=== PATIENT | male | born 1970 | race African-American/Black ===

== ENCOUNTER 2018-05-03 10:40 | Inpatient (IN) ==
[2018-05-03] MEDS ORDERED: DEXAMETHASONE 4 MG/1 ML VIAL IM STA (11:55)
[2018-05-03] MEDS ORDERED: ALBUTEROL/IPRATROPIUM 3 ML NEB RESP TX STA ×2 (11:55→13:11)
[2018-05-03 12:19] LABS: Basophils # 0.1 10*3/uL (0.0-0.2); Basophils % 0.5 % (0.0-0.8); Eosinophils # 0.2 10*3/uL (0.0-0.87); Eosinophils % 1.8 % (0.00-10.9); Hematocrit 41.7 VOL% (42.0-52.0); Hemoglobin 13.2 GM/DL (14.0-18.0); Immature Granulocytes % 0.6 %; Immature Granulocytes Absolute 0.06 #; Lymphocytes # 2.5 10*3/uL (1.4-4.0); Mean Corpuscular HGB Conc 31.7 GM/DL (32-36); Mean Corpuscular Hemoglobin 28 PG (27-34); Mean Corpuscular Volume 89.1 FL (87-102); Mean Platelet Volume 8.6 FL (9.6-12.0); Monocytes # 0.8 10*3/uL (0.11-0.8); Monocytes % 8.3 % (1.7-12.7); Neutrophils % 62.8 % (38.7-73.9); Platelet Count 433 T/CUMM (130-400); Red Blood Count 4.68 MC/CUMM (3.8-5.5); Red Cell Distribution Width 13.5 % (9.3-17.3); White Blood Count 9.5 T/CUMM (4-12)
[2018-05-03 12:27] LABS: PT Patient Result 10.7 SECS
[2018-05-03] MEDS ORDERED: DEXAMETHASONE 10 MG/1 ML VIAL ONE (12:33)
[2018-05-03 12:37] LABS: Alanine Aminotransferase 44 U/L (16-61); Albumin 3.8 G/DL (3.4-5.0); Alkaline Phosphatase 81 U/L (45-117); Aspartate Amino Transferase 30 U/L (0-37); Bilirubin,Total < 0.39 MG/DL (0.2-1.0); Blood Urea Nitrogen 15 MG/DL (7-18); Calcium 9.5 MG/DL (8.5-10.1); Glucose 125 MG/DL (74-106); Osmolality,Calculated 276.7 MOS/KG (273-304); Potassium 4.4 MMOL/L (3.5-5.1); Sodium 138 MMOL/L (136-145); Total Protein 7.7 G/DL (6.4-8.3)
[2018-05-03] MEDS ORDERED: ONDANSETRON 4 MG/2 ML VIAL IV PRN (13:31)
[2018-05-03] MEDS ORDERED: ACETAMINOPHEN 325 MG TABLET PO PRN (13:31)
[2018-05-03] MEDS ORDERED: PROMETHAZINE 25 MG/1 ML VIAL IM PRN (13:31)
[2018-05-03] MEDS ORDERED: methylPREDNISolone SOD SUC 125 MG/2 ML VIAL IV STA (13:33)
[2018-05-03] MEDS ORDERED: cefTRIAXone 1,000 MG in SYRINGE 1 EACH IV STA (13:34)
[2018-05-03] MEDS ORDERED: AZITHROMYCIN INJ 500 MG in SODIUM CHLORIDE 0.9% 250 ML IV ONE ×2 (13:35→16:00)
[2018-05-03] MEDS ORDERED: KETOROLAC 30 MG/1 ML VIAL IV STA (13:39)
[2018-05-03] MEDS ORDERED: ENOXAPARIN 40 MG/0.4 ML SYRINGE SUBCUT SCH (14:00)
[2018-05-03] MEDS ORDERED: PANTOPRAZOLE 40 MG TABLET PO SCH (14:00)
[2018-05-03] MEDS ORDERED: methylPREDNISolone SOD SUC 40 MG/1 ML VIAL IV SCH (14:00)
[2018-05-03] MEDS ORDERED: cefTRIAXone 1,000 MG in SYRINGE 1 EACH IV SCH (14:00)
[2018-05-03 14:24] LABS: Thyroid Stimulating Hormone 1.56 uIU/ml (0.358-3.74)
[2018-05-03] MEDS ORDERED: methylPREDNISolone SOD SUC 125 MG/2 ML VIAL ONE (14:28)
[2018-05-03] MEDS ORDERED: cefTRIAXone 1,000 MG VIAL ONE (14:28)
[2018-05-03] MEDS ORDERED: DEXTROSE 50% 25 GM/50 ML VIAL IV PRN (15:28)
[2018-05-03] MEDS ORDERED: GLUCAGON 1 MG VIAL IM PRN (15:28)
[2018-05-03] MEDS ORDERED: AZITHROMYCIN INJ 500 MG in SODIUM CHLORIDE 0.9% 250 ML IV SCH (16:00)
[2018-05-03] MEDS: ENOXAPARIN 40 MG/0.4 ML SYRINGE SUBCUT SCH (16:09)
[2018-05-03] MEDS: PANTOPRAZOLE 40 MG TABLET PO SCH (16:10)
[2018-05-03] MEDS ORDERED: METOPROLOL TARTRATE 5 MG/5 ML VIAL IV ONE (16:10)
[2018-05-03] MEDS ORDERED: hydrALAZINE 20 MG/1 ML VIAL IV PRN (16:11)
[2018-05-03] MEDS: INSULIN LISPRO 100 UNIT/ML SUBCUT SCH ×2 (16:11→22:27)
[2018-05-03] MEDS ORDERED: NITROGLYCERIN SL 0.4 MG TABLET SL PRN (16:12)
[2018-05-03] MEDS: ASPIRIN EC 81 MG TABLET PO SCH (16:35)
[2018-05-03] MEDS: ALBUTEROL/IPRATROPIUM 3 ML NEB RESP TX SCH (19:37)
[2018-05-03 20:59] LABS: CKMB % 1.3 %; Troponin I 0.023 NG/ML (0.00-0.045)
[2018-05-03] MEDS: METOPROLOL TARTRATE 25 MG TABLET PO SCH (22:27)
[2018-05-03] MEDS: sitaGLIPtin 25 MG TABLET PO SCH (22:27)
[2018-05-03] MEDS: methylPREDNISolone SOD SUC 40 MG/1 ML VIAL IV SCH (22:28)
[2018-05-03] MEDS: KETOROLAC 15 MG/1 ML VIAL IV SCH (22:28)
[2018-05-04] MEDS: ALBUTEROL/IPRATROPIUM 3 ML NEB RESP TX SCH ×4 (01:50→19:15)
[2018-05-04 02:09] LABS: Basophils % 0.1 % (0.0-0.8); Hemoglobin 13.1 GM/DL (14.0-18.0); Immature Granulocytes % 0.9 %; Immature Granulocytes Absolute 0.13 #; Lymphocytes % 6.7 % (21.2-54.2); Mean Corpuscular Hemoglobin 28 PG (27-34); Mean Corpuscular Volume 87.8 FL (87-102); Mean Platelet Volume 8.5 FL (9.6-12.0); Monocytes # 0.1 10*3/uL (0.11-0.8); Monocytes % 0.9 % (1.7-12.7); Neutrophils # 13.6 10*3/uL (1.4-7.4); Neutrophils % 91.4 % (38.7-73.9); Platelet Count 448 T/CUMM (130-400); Red Blood Count 4.67 MC/CUMM (3.8-5.5); Red Cell Distribution Width 13.6 % (9.3-17.3); White Blood Count 14.9 T/CUMM (4-12)
[2018-05-04 02:52] LABS: CKMB % 1.4 %; Troponin I 0.015 NG/ML (0.00-0.045)
[2018-05-04 02:54] LABS: Alanine Aminotransferase 39 U/L (16-61); Albumin 3.4 G/DL (3.4-5.0); Alkaline Phosphatase 72 U/L (45-117); Aspartate Amino Transferase 19 U/L (0-37); Bilirubin,Total < 0.39 MG/DL (0.2-1.0); Blood Urea Nitrogen 18 MG/DL (7-18); Calcium 9.1 MG/DL (8.5-10.1); Cholesterol 183 MG/DL (50-200); Glucose 264 MG/DL (74-106); HDL Cholesterol 54 MG/DL (40-60); Osmolality,Calculated 280.1 MOS/KG (273-304); Potassium 4.3 MMOL/L (3.5-5.1); Risk Ratio 3.39; Sodium 135 MMOL/L (136-145); Total Protein 8.1 G/DL (6.4-8.3); Triglycerides 54 MG/DL (2-150); VLDL CHOLESTEROL 10.8 MG/DL
[2018-05-04 03:42] LABS: Lymphocytes 9 % (20-55); Platelet Estimate Normal; Polychromasia Few; Segmented Neutrophils 91 % (50-85); Total Cells Counted 100
[2018-05-04] MEDS: KETOROLAC 15 MG/1 ML VIAL IV SCH ×2 (04:13→08:48)
[2018-05-04] MEDS: methylPREDNISolone SOD SUC 40 MG/1 ML VIAL IV SCH (04:16)
[2018-05-04] MEDS ORDERED: diphenhydrAMINE CAP 25 MG CAPSULE PO ONE (06:30)
[2018-05-04] MEDS ORDERED: POTASSIUM CHLORIDE RIDER 10 MEQ in PREMIX 1 EACH IV PRN (06:30)
[2018-05-04] MEDS ORDERED: MAGNESIUM SULF RIDER 2 GM in PREMIX 1 EACH IV PRN (06:30)
[2018-05-04] MEDS ORDERED: DIAZEPAM 5 MG TABLET PO ONE (06:30)
[2018-05-04] MEDS: ENOXAPARIN 40 MG/0.4 ML SYRINGE SUBCUT SCH (08:48)
[2018-05-04] MEDS: LOSARTAN 50 MG TABLET PO SCH (08:49)
[2018-05-04] MEDS: ASPIRIN EC 81 MG TABLET PO SCH (08:49)
[2018-05-04] MEDS: PANTOPRAZOLE 40 MG TABLET PO SCH (08:50)
[2018-05-04] MEDS: METOPROLOL TARTRATE 25 MG TABLET PO SCH ×2 (08:50→20:18)
[2018-05-04] MEDS ORDERED: AZITHROMYCIN INJ 250 MG in SODIUM CHLORIDE 0.9% 250 ML IV SCH (09:00)
[2018-05-04] MEDS ORDERED: LOSARTAN 25 MG TABLET PO SCH (09:00)
[2018-05-04] MEDS: SODIUM CHLORIDE 0.9% 1,000 ML IV SCH ×2 (10:24→14:48)
[2018-05-04] MEDS: INSULIN LISPRO 100 UNIT/ML SUBCUT SCH ×4 (10:24→21:19)
[2018-05-04] MEDS ORDERED: LIDOCAINE 1% 20 ML VIAL ONE (10:54)
[2018-05-04] MEDS ORDERED: HYDROmorphone 2 MG/1 ML VIAL ONE (11:38)
[2018-05-04] MEDS ORDERED: MIDAZOLAM 2 MG/2 ML VIAL ONE (11:38)
[2018-05-04] MEDS: sitaGLIPtin 25 MG TABLET PO SCH (20:18)
[2018-05-04] MEDS: ROSUVASTATIN 20 MG TABLET PO SCH (20:18)
[2018-05-05] MEDS: ALBUTEROL/IPRATROPIUM 3 ML NEB RESP TX SCH ×4 (01:53→19:16)
[2018-05-05 05:26] LABS: Basophils % 0.2 % (0.0-0.8); Eosinophils % 0.1 % (0.00-10.9); Hemoglobin 12.3 GM/DL (14.0-18.0); Immature Granulocytes % 0.7 %; Immature Granulocytes Absolute 0.13 #; Lymphocytes # 2.6 10*3/uL (1.4-4.0); Lymphocytes % 12.8 % (21.2-54.2); Mean Corpuscular HGB Conc 31.5 GM/DL (32-36); Mean Corpuscular Hemoglobin 28 PG (27-34); Mean Corpuscular Volume 87.8 FL (87-102); Mean Platelet Volume 9.3 FL (9.6-12.0); Monocytes # 1.4 10*3/uL (0.11-0.8); Monocytes % 6.8 % (1.7-12.7); Neutrophils # 15.8 10*3/uL (1.4-7.4); Neutrophils % 79.4 % (38.7-73.9); Platelet Count 442 T/CUMM (130-400); Red Blood Count 4.44 MC/CUMM (3.8-5.5); Red Cell Distribution Width 13.8 % (9.3-17.3); White Blood Count 19.9 T/CUMM (4-12)
[2018-05-05 05:56] LABS: Potassium 4.2 MMOL/L (3.5-5.1)
[2018-05-05 05:58] LABS: Troponin I 0.025 NG/ML (0.00-0.045)
[2018-05-05] MEDS: INSULIN LISPRO 100 UNIT/ML SUBCUT SCH ×4 (08:21→21:22)
[2018-05-05] MEDS: ENOXAPARIN 40 MG/0.4 ML SYRINGE SUBCUT SCH (08:21)
[2018-05-05] MEDS: FUROSEMIDE 40 MG TABLET PO SCH (08:32)
[2018-05-05] MEDS: ASPIRIN EC 81 MG TABLET PO SCH (08:32)
[2018-05-05] MEDS: PANTOPRAZOLE 40 MG TABLET PO SCH (08:32)
[2018-05-05] MEDS: LOSARTAN 50 MG TABLET PO SCH (08:32)
[2018-05-05] MEDS: CARVEDILOL 6.25 MG TABLET PO SCH ×2 (08:32→16:44)
[2018-05-05] MEDS: predniSONE 20 MG TABLET PO SCH (08:32)
[2018-05-05] MEDS: ROSUVASTATIN 20 MG TABLET PO SCH (21:21)
[2018-05-05] MEDS: sitaGLIPtin 25 MG TABLET PO SCH (21:21)
[2018-05-05] MEDS: DOXYCYCLINE HYCLATE 100 MG CAPSULE PO SCH (21:21)
[2018-05-06] MEDS: ALBUTEROL/IPRATROPIUM 3 ML NEB RESP TX SCH ×2 (00:36→08:40)
[2018-05-06 06:30] LABS: Basophils % 0.2 % (0.0-0.8); Eosinophils % 0.2 % (0.00-10.9); Hemoglobin 12.7 GM/DL (14.0-18.0); Immature Granulocytes % 1.1 %; Immature Granulocytes Absolute 0.18 #; Lymphocytes % 18.1 % (21.2-54.2); Mean Corpuscular HGB Conc 31.8 GM/DL (32-36); Mean Corpuscular Hemoglobin 28 PG (27-34); Mean Corpuscular Volume 89.1 FL (87-102); Mean Platelet Volume 9.6 FL (9.6-12.0); Monocytes # 1.5 10*3/uL (0.11-0.8); Monocytes % 8.9 % (1.7-12.7); Neutrophils # 11.7 10*3/uL (1.4-7.4); Neutrophils % 71.5 % (38.7-73.9); Platelet Count 422 T/CUMM (130-400); Red Blood Count 4.49 MC/CUMM (3.8-5.5); Red Cell Distribution Width 13.6 % (9.3-17.3); White Blood Count 16.4 T/CUMM (4-12)
[2018-05-06 06:42] LABS: Calcium 8.6 MG/DL (8.5-10.1); Calcium 8.7 MG/DL (8.5-10.1); Osmolality,Calculated 281.5 MOS/KG (273-304); Potassium 3.9 MMOL/L (3.5-5.1)
[2018-05-06] MEDS ORDERED: CARVEDILOL 12.5 MG TABLET PO SCH (08:00)
[2018-05-06 08:14] VITALS: BP 167/94
[2018-05-06] MEDS: predniSONE 20 MG TABLET PO SCH (08:57)
[2018-05-06] MEDS: FUROSEMIDE 40 MG TABLET PO SCH (08:57)
[2018-05-06] MEDS: LOSARTAN 50 MG TABLET PO SCH (08:57)
[2018-05-06] MEDS: PANTOPRAZOLE 40 MG TABLET PO SCH (08:57)
[2018-05-06] MEDS: DOXYCYCLINE HYCLATE 100 MG CAPSULE PO SCH (08:58)
[2018-05-06] MEDS: ENOXAPARIN 40 MG/0.4 ML SYRINGE SUBCUT SCH (08:58)
[2018-05-06] MEDS: INSULIN LISPRO 100 UNIT/ML SUBCUT SCH (08:58)
[2018-05-06] MEDS: ASPIRIN EC 81 MG TABLET PO SCH (08:58)
== END 2018-05-06 10:39 | disposition home or self-care (01) | DRG 202 ==
LOC: N.ED 10:40 → N.EDINP 13:31 → SUATTDRO 13:31 → N.2E 15:00
PROVIDERS: ADMIT Internal Medicine; ATTEND Internal Medicine